=== PATIENT | female | born 1960 | race Caucasian/White ===

== ENCOUNTER 2017-12-21 21:34 | Emergency (ER) | payer OTHER ==
[~2017-12-21] VITALS: Ht 162.6 cm; Wt 62.6 kg
[~2017-12-21 21:34] MED LIST: METH2.5T3; SEVELLA; THYR120T
[2017-12-21 21:39] VITALS: BP 124/86
== END 2017-12-22 00:36 | disposition left against medical advice (07) ==
LOC: EDBD 21:34 → EDUNIT# 21:34 → ER 21:40
DX: R51 Headache (principal); R11.2 Nausea with vomiting, unspecified; Z53.21 Procedure and treatment not carried out due to patient leaving prior to being seen by health care provider

== ENCOUNTER 2024-05-20 18:09 | Emergency (ER) | payer OTHER ==
[~2024-05-20] VITALS: Ht 165.1 cm; Wt 76.4 kg
[~2024-05-20 18:09] MED LIST changes: +METH2.5T; -METH2.5T3
--- NOTE | 2024-05-20 18:33 | ED.PDOC ---
History of Present Illness HPI Comments 63-year-old female with a history of hemorrhagic stroke, kidney stones, asthma and thyroid disease brought in by self, referred by [facility] for evaluation of right upper flank pain intermittently for the past 8 months, worse for the last 4 days. Patient states pain is like a contraction, radiates to the right upper quadrant, and is associated with nausea and vomiting when the pain is severe. She was seen at [facility] today because the pain was severe since yesterday, was diagnosed with a UTI, and was advised to come to the ER for a CT of her abdomen and pelvis. She denies any fever, constipation, dysuria or hematuria. She states she has chronic diarrhea ever since her stroke. Chief Complaint: Flank Pain Time Seen by MD: 18:25 Primary Care Provider: Marcio Reviewed Notes: Nurses Notes, Medications, Allergies Allergies: Coded Allergies: Codeine (Verified Allergy, Unknown, 07/30/22) Home Meds Reported Medications [Sevella] No Conflict Check 10/15/12 [Methotrexate2.5 Mg] (Methotrexate) 2.5 MG TAB No Conflict Check, MG 10/15/12 [Caldwell [id number] Mg] (Caldwell Thyroid) 120 MG TAB No Conflict Check, MG 10/15/12 Information Source: Patient Mode of Arrival: Ambulatory Severity: Moderate Timing: Hours Duration: Since onset Prehospital treatment: None Past Medical History PAST MEDICAL HISTORY: CVA (w/residual GI issues since 2012), Thyroid Past Medical History (Other): Asthma, kidney stones Surgical History: Cholecystectomy, Hysterectomy, Tonsillectomy Surgical History (Other): gastric bypass, lithotripsy Family History Family History: Reviewed,noncontributory to illness Social History Smoker: Non-Smoker Alcohol: Denies ETOH Use Drugs: Denies Drug Use Lives In: Home Gastrointestinal: reports: nausea, vomiting Genitourinary: reports: flank pain All Other Systems: Reviewed and Negative (negative unless otherwise stated above or in HPI) Physical Exam General Appearance: Mild Distress HEENT: Other (Pupils and face symmetric, moist mucous membranes) Neck: Full Range of Motion, Normal Inspection Respiratory: Lungs Clear, No Accessory Muscle Use, No Respiratory Distress, Normal Breath Sounds Cardiovascular: No Edema, No JVD, Regular Rate/Rhythm Breast Exam: Deferred Gastrointestinal: Non Tender, Soft Genitalia: Deferred Pelvic: Deferred Rectal: Deferred Extremities: Normal inspection, Normal range of motion, Non-tender, No pedal edema Neurologic: Alert (Oriented x4), Normal Affect, Normal Mood, Other (Ambulatory without difficulty. No gross focal deficit.) Cerebellar Function: NOT DONE Reflexes: NOT DONE Skin: Dry, Normal Color, Warm Lymphatic: NOT DONE Was a procedure done? Was a procedure done?: No Differential Dx Considerations may include: kidney stones, UTI, liver/biliary tract disease, diverticular disease, colitis, pyelonephritis, ischemic bowel, intra-abdominal mass, electrolyte imbalance, hypovolemia/dehydration, sepsis, among others. X-Ray, Labs, Meds, VS Vital Signs Date Time Temp Pulse Resp B/P (MAP) Pulse Ox O2 Delivery O2 Flow Rate FiO2 05/20/24 18:27 97.7 75 17 107/72 (84) 97 Lab Test 05/20/24 19:05 Range/Units White Blood Count 5.7 4.4-10.8 10^3/uL Red Blood Count 4.58 4.0-5.20 10^6/uL Hemoglobin 13.4 12.2-16.2 g/dL Hematocrit 41.2 36.0-46.0 % Mean Corpuscular Volume 90.0 80.0-100.0 fL Mean Corpuscular Hemoglobin 29.2 28.0-32.0 pg Mean Corpuscular Hemoglobin Concent 32.4 32.0-36.0 g/dL Red Cell Distribution Width 14.3 11.8-14.3 % Platelet Count 276 140-450 10^3/uL Mean Platelet Volume 7.8 6.9-10.8 fL Neutrophils (%) (Auto) 52.5 37.0-80.0 % Lymphocytes (%) (Auto) 37.2 10.0-50.0 % Monocytes (%) (Auto) 7.4 0.0-12.0 % Eosinophils (%) (Auto) 2.2 0.0-7.0 % Basophils (%) (Auto) 0.7 0.0-2.0 % Neutrophils # (Auto) 3.0 1.6-8.6 10 ^3/uL Lymphocytes # (Auto) 2.1 0.4-5.4 10 ^3/uL Monocytes # (Auto) 0.4 0-1.3 10 ^3/uL Eosinophils # (Auto) 0.1 0-0.8 10 ^3/uL Basophils # (Auto) 0 0-0.2 10 ^3/uL Nucleated Red Blood Cells 0.1 % Sodium Level 141 136-145 mmol/L Potassium Level 3.9 3.5-5.1 mmol/L Chloride Level 106 98-107 mmol/L Carbon Dioxide Level 27 20-31 mmol/L Anion Gap 8 5-15 Blood Urea Nitrogen 16 9-23 mg/dL Creatinine 0.78 0.550-1.02 mg/dL Glomerular Filtration Rate Calc 85 >90 mL/min BUN/Creatinine Ratio 20.5 H 10.0-20.0 Serum Glucose 92 74-106 mg/dL Lactic Acid Level 0.7 0.4-2.0 mmol/L Calcium Level 10.0 8.7-10.4 mg/dL Total Bilirubin 0.4 0.2-1.0 mg/dL Aspartate Amino Transferase (AST) 55 H 13-40 U/L Alanine Aminotransferase (ALT) 141 H 7-40 U/L Alkaline Phosphatase 128 H 46-116 U/L Total Protein 6.7 5.7-8.2 g/dL Albumin 4.7 3.2-4.8 g/dL Lipase 40 12-53 U/L PROCEDURE(s): ABPL - CT AB PEL WO CON-NO ORAL OR IV REASON: R flank pain ORDER NUMBER(s): [id number], ACCESSION NUMBER(s): [id number] Exam: CT CT AB PEL WO CON-NO ORAL OR IV History: R flank pain Comparison Study: None available at time of dictation. TECHNIQUE: Multidetector CT of the abdomen was performed from lung bases to pubic symphysis. Imaging was performed without IV contrast. Axial, coronal and sagittal multiplanar reformats were obtained from the axial data set by the technologist. Radiation Dose Information: CT Dose: CTDI volume is 16.57 mGy. Dose-length product is 897.49 mGy*cm FINDINGS: Evaluation of solid organs is limited due to lack of intravenous contrast use. Findings: Lung Bases: No acute or significant lung base finding. Ground-glass infiltrates in the posterior costophrenic angles bilaterally. Normal heart size. No pleural or pericardial effusion. Liver: The liver is normal in size. No focal lesions. Gallbladder and Biliary Tree: Unremarkable Spleen: Unremarkable Pancreas: The pancreas is grossly normal in appearance. Adrenal Glands: Unremarkable Kidneys: No renal calculi or hydronephrosis. 4-5 mm calculus in the upper pelvis on the right unchanged from 4 12/21/2022. Series 2 image 66. Was located slightly more cephalad on study of 07/30/2022 Bladder: Grossly unremarkable for degree of distention. No calculi in the bladder. Bowel: The stomach is grossly normal in appearance. Small bowel and colon are normal in caliber and distribution. The appendix is not visualized; however, no secondary findings of acute appendicitis identified. Ascites: Absent Lymphadenopathy: No mesenteric, retroperitoneal or periportal lymphadenopathy. Abdominal Wall and Mesentery: Unremarkable. Vasculature: The visualized abdominal aorta is normal in size and caliber. Evaluation of abdominal and pelvic vessels is limited due to lack of intravenous contrast. Pelvic Organs: Unremarkable Musculoskeletal: No aggressive focal bony lesions, acute fractures or dislocation. Soft tissues: Unremarkable IMPRESSION: 1. No renal calculi or hydronephrosis bilaterally. 2. 4-5 mm calculus in the right upper pelvis series 2 image 66. In study of 07/30/2022 it was located slightly more cephalad. Radiation optimization: All CT scans at this facility use at least one of these dose optimization techniques: automated exposure control mA and/or kV adjustment per patient size (includes targeted exams where dose is matched to clinical indication) or iterative reconstruction. X-Ray, Labs, Meds, VS Comment 63-year-old female with a history of hemorrhagic stroke, kidney stones, asthma and thyroid disease referred by [facility] for evaluation of right flank pain and urinary tract infection Vitals unremarkable Exam remarkable for right upper flank and right upper quadrant tenderness to palpation. Nontender to percussion. No rebound or guarding. Rhythm strip independently interpreted by me: Sinus rhythm, rate 75, no ectopy. CT abdomen and pelvis IMPRESSION: 1. No renal calculi or hydronephrosis bilaterally. 2. 4-5 mm calculus in the right upper pelvis series 2 image 66. In study of 07/30/2022 it was located slightly more cephalad. CBC unremarkable, comprehensive metabolic panel remarkable for AST 55, ALT 141, alkaline phos 128, lipase and lactate normal Patient treated with the following in the ED: 1 L 0.9 normal saline IV bolus, morphine 4 mg IV, Zofran 4 mg IV, Rocephin 2 g IV On re-evaluation, patient states pain has improved. Vitals were stable. Hospitalization was considered, however patient had rapid improvement of symptoms with treatment in the ED, and I no longer feel hospitalization is necessary. Patient appears stable for discharge with close outpatient follow-up with her primary physician. Rx Keflex, ibuprofen, [place] Time of 1ST Reevaluation: 18:55 Reevaluation 1ST: Unchanged Time of 2ND Reevaluation: 20:37 Reevaluation 2ND: Improved Patient Education/Counseling: Diagnosis, Treatment, Need For Follow Up Family Education/Counseling: No Family Present Departure 1 Departure Time of Disposition: 20:37 Impression: Primary Impression: UTI (urinary tract infection) Qualified Codes: N39.0 - Urinary tract infection, site not specified Disposition: HOME / SELF CARE / HOMELESS Condition: Stable Additional Instructions: Your blood tests showed mildly elevated liver function tests, but were otherwise unremarkable. Your CT scan did not show any stones within your kidneys. There was a calcification shown on the right side of your pelvis which was also seen on a previous CT scan performed on 07/10/2022 and is essentially unchanged. I have enclosed a report below. We have treated you with pain medication, IV fluids, and IV antibiotics in the ED. I have prescribed antibiotics and pain medication to take at home. Follow-up with your primary physician in 1-2 days. Return to ER for persistent or worsening symptoms. [place] [address] Ph: [phone] DIAGNOSTIC IMAGING Diagnostic Imaging Report : [id number] Signed PATIENT: JADE TESFAYE ACCT: [id number] UNIT: [id number] : 1960 LOC: ER ROOM / BED: / AGE / SEX: 63 / F ADM STATUS: REG ER SERVICE [id number] ORDERING PHYSICIAN: TICO LERNER MD PROCEDURE(s): ABPL - CT AB PEL WO CON-NO ORAL OR IV REASON: R flank pain ORDER NUMBER(s): [id number], ACCESSION NUMBER(s): [id number] Exam: CT CT AB PEL WO CON-NO ORAL OR IV History: R flank pain Comparison Study: None available at time of dictation. TECHNIQUE: Multidetector CT of the abdomen was performed from lung bases to pubic symphysis. Imaging was performed without IV contrast. Axial, coronal and sagittal multiplanar reformats were obtained from the axial data set by the technologist. Radiation Dose Information: CT Dose: CTDI volume is 16.57 mGy. Dose-length product is 897.49 mGy*cm FINDINGS: Evaluation of solid organs is limited due to lack of intravenous contrast use. Findings: Lung Bases: No acute or significant lung base finding. Ground-glass infiltrates in the posterior costophrenic angles bilaterally. Normal heart size. No pleural or pericardial effusion. Liver: The liver is normal in size. No focal lesions. Gallbladder and Biliary Tree: Unremarkable Spleen: Unremarkable Pancreas: The pancreas is grossly normal in appearance. Adrenal Glands: Unremarkable Kidneys: No renal calculi or hydronephrosis. 4-5 mm calculus in the upper pelvis on the right unchanged from 4 12/21/2022. Series 2 image 66. Was located slightly more cephalad on study of 07/30/2022 Bladder: Grossly unremarkable for degree of distention. No calculi in the bladder. Bowel: The stomach is grossly normal in appearance. Small bowel and colon are normal in caliber and distribution. The appendix is not visualized; however, no secondary findings of acute appendicitis identified. Ascites: Absent Lymphadenopathy: No mesenteric, retroperitoneal or periportal lymphadenopathy. Abdominal Wall and Mesentery: Unremarkable. Vasculature: The visualized abdominal aorta is normal in size and caliber. Evaluation of abdominal and pelvic vessels is limited due to lack of intravenous contrast. Pelvic Organs: Unremarkable Musculoskeletal: No aggressive focal bony lesions, acute fractures or dislocation. Soft tissues: Unremarkable IMPRESSION: 1. No renal calculi or hydronephrosis bilaterally. 2. 4-5 mm calculus in the right upper pelvis series 2 image 66. In study of 07/30/2022 it was located slightly more cephalad. Radiation optimization: All CT scans at this facility use at least one of these dose optimization techniques: automated exposure control mA and/or kV adjustment per patient size (includes targeted exams where dose is matched to clinical indication) or iterative reconstruction. e-Prescriptions Hydrocodone-Acetaminophen (Hydrocodone Bitartrate/AC 5-325 mg) 1 Tab Tab 1 TAB PO Q6HP PRN, #10 TAB prn breakthrough pain Prov: TICO LERNER MD 05/20/24 Ibuprofen Micronized (Ibuprofen) 600 Mg Tab 600 MG PO Q6HP PRN, #30 TAB prn fever or pain, take with food Prov: TICO LERNER MD 05/20/24 Cephalexin Monohydrate (Cephalexin) 500 Mg Cap 1 CAP PO QID for 10 Days, #40 CAP Prov: TICO LERNER MD 05/20/24 Discharged With: Relative Critical Care Note Critical Care Time?: No Stability Stability form required: No Heart Score Heart Score: Heart Score Response (Comments) Value History N/A 0 EKG N/A 0 Age N/A 0 Risk Factors N/A 0 Troponin N/A 0 Total 0 I personally scribed for TICO LERNER MD ([email or web address]) on 05/20/24 at 18:33. Electronically submitted by Curtis Read ([email or web address]). I personally scribed for TICO LERNER MD ([email or web address]) on 05/20/24 at 18:43. Electronically submitted by Brynn Land ([email or web address]). TICO LERNER MD May 20, 2024 18:33
[2024-05-20 19:37] LABS: Basophils # (auto) 0 10 ^3/uL (0-0.2); Basophils % (auto) 0.7 % (0.0-2.0); Eosinophils # (auto) 0.1 10 ^3/uL (0-0.8); Eosinophils % (auto) 2.2 % (0.0-7.0); Hematocrit 41.2 % (36.0-46.0); Hemoglobin 13.4 g/dL (12.2-16.2); Lymphocytes # (auto) 2.1 10 ^3/uL (0.4-5.4); Lymphocytes % (auto) 37.2 % (10.0-50.0); Mean Corpuscular Hemoglobin 29.2 pg (28.0-32.0); Mean Corpuscular Hgb Conc. 32.4 g/dL (32.0-36.0); Monocytes # (auto) 0.4 10 ^3/uL (0-1.3); Monocytes % (auto) 7.4 % (0.0-12.0); Neutrophils % (auto) 52.5 % (37.0-80.0); Nucleated Red Blood Cells % 0.1 %; Platelet Count (auto) 276 10^3/uL (140-450); Red Blood Cells 4.58 10^6/uL (4.0-5.20); Red Cell Distribution Width 14.3 % (11.8-14.3); White Blood Cell 5.7 10^3/uL (4.4-10.8)
[2024-05-20 19:51] LABS: Albumin 4.7 g/dL (3.2-4.8); Anion Gap 8 (5-15); BUN/Creatinine Ratio 20.5 (10.0-20.0); Blood Urea Nitrogen 16 mg/dL (9-23); Carbon Dioxide 27 mmol/L (20-31); Chloride 106 mmol/L (98-107); Glucose 92 mg/dL (74-106); Lipase 40 U/L (12-53); Potassium 3.9 mmol/L (3.5-5.1); Sodium 141 mmol/L (136-145)
[2024-05-20 19:52] LABS: Bilirubin, Total 0.4 mg/dL (0.2-1.0); Total Protein 6.7 g/dL (5.7-8.2)
[2024-05-20 19:56] LABS: Alanine Aminotransferase 141 U/L (7-40); Alkaline Phosphatase 128 U/L (46-116); Aspartate Aminotransferase 55 U/L (13-40)
--- NOTE | 2024-05-20 20:07 | DVH ---
Exam: CT CT AB PEL WO CON-NO ORAL OR IV History: R flank pain Comparison Study: None available at time of dictation. TECHNIQUE: Multidetector CT of the abdomen was performed from lung bases to pubic symphysis. Imaging was performed without IV contrast. Axial, coronal and sagittal multiplanar reformats were obtained fr om the axial data set by the technologist. Radiation Dose Information: CT Dose: CTDI volume is 16.57 mGy. Dose-length product is 897.49 mGy*cm FINDINGS: Evaluation of solid organs is limited due to lack of intravenous contrast use. Findings: Lung Bases: No acute or significant lung base finding. Ground-glass infiltrates in the posterior cost ophrenic angles bilaterally. Normal heart size. No pleural or pericardial effusion. Liver: The liver is normal in size. No focal lesions. Gallbladder and Biliary Tree: Unremarkable Spleen: Unremarkable Pancreas: The pancreas is grossly normal in appearance. Adrenal Glands: Unremarkable Kidneys: No renal calculi or hydronephrosis. 4-5 mm calculus in the upper pelvis [facility] 12[facility]. Series 2 image 66. Was located slightly more cephalad on study of 07/30/2022 Bladder: Grossly unremarkable for degree of distention. No calculi in the bladder. Bowel: The stomach is grossly normal in appearance. Small bowel and colon are normal in caliber and d istribution. The appendix is not visualized; however, no secondary findings of acute appendicitis id entified. Ascites: Absent Lymphadenopathy: No mesenteric, retroperitoneal or periportal lymphadenopathy. Abdominal Wall and Mesentery: Unremarkable. Vasculature: The visualized abdominal aorta is normal in size and caliber. Evaluation of abdominal a nd pelvic vessels is limited due to lack of intravenous contrast. Pelvic Organs: Unremarkable Musculoskeletal: No aggressive focal bony lesions, acute fractures or dislocation. Soft tissues: Unremarkable IMPRESSION: 1. No renal calculi or hydronephrosis bilaterally. 2. 4-5 mm calculus in the right upper pelvis series 2 image 66. In study of 07/30/2022 it was located slightly more cephalad. Radiation optimization: All CT scans at this facility use at least one of these dose optimization te chniques: automated exposure control mA and/or kV adjustment per patient size (includes targeted exa ms where dose is matched to clinical indication) or iterative reconstruction.
[2024-05-20] MEDS ORDERED: IBUP1TAB5 PO (20:41)
[2024-05-20] MEDS ORDERED: CEPH500C PO (20:41)
[2024-05-20] MEDS ORDERED: HYDR-4902 PO (20:41)
[2024-05-20 21:08] VITALS: TEMP 98.7
[2024-05-20] MEDS ORDERED: cefTRIAXone 1GM/50ML D5W 100 ML IV ONE (21:24)
[2024-05-20] MEDS: ONDANSETRON HCL 4 MG/2 ML VIAL IV ONE (21:24)
[2024-05-20] MEDS: SODIUM CHLORIDE 0.9% 1,000 ML IV ONE (21:24)
[2024-05-20] MEDS: cefTRIAXone 2GM/50ML D5W 50 ML IV ONE (21:25)
[2024-05-20 21:27] VITALS: BP 114/74
[2024-05-20] MEDS: MORPHINE SULFATE 4 MG/ML SYR/VIAL IV ONE (21:27)
[2024-05-20 21:37] VITALS: PULSE 78; RESP 18; O2SAT 98
== END 2024-05-20 22:10 | disposition home or self-care (01) ==
LOC: ER 18:09
DX: N39.0 Urinary tract infection, site not specified (principal); E03.9 Hypothyroidism, unspecified; J45.909 Unspecified asthma, uncomplicated; Z79.899 Other long term (current) drug therapy; Z86.73 Personal history of transient ischemic attack (TIA), and cerebral infarction without residual deficits; Z87.442 Personal history of urinary calculi; Z90.49 Acquired absence of other specified parts of digestive tract; Z90.710 Acquired absence of both cervix and uterus; Z98.84 Bariatric surgery status; Z98.890 Other specified postprocedural states; Z88.5 Allergy status to narcotic agent
CPT/HCPCS: 36415; 74176; 80053; 83605; 83690; 85025; 96365; 96375; 99285; J7030